=== PATIENT | male | born 1955 | race Caucasian/White ===

== ENCOUNTER 2016-03-14 12:23 | Day surgery (SDC) | payer BC ==
[2016-03-14] MEDS ORDERED: LIDOCAINE 2% MDV (20MG/ML) 20ML VIAL IV ONE (14:00)
[2016-03-14] MEDS ORDERED: PROPOFOL 10 MG/ML VIAL IV ONE (14:00)
--- NOTE | 2016-03-15 16:00 | Operative Note ---
DATE OF SURGERY: 03/14/2016. DICTATING MACHINE SHOP INSPECTOR: Yonatan Hart D.O. dictating for Mario Beckett D.O. PREOPERATIVE INDICATION: This is a 60-year-old male undergoing screening colonoscopy for colorectal neoplasia. POSTOPERATIVE DIAGNOSES: 1. Sigmoid colon diverticulosis. 2. Ascending colon polyp, 6.0 mm and sessile. Removed with cold-snare and retrieved for pathology. 3. Normal terminal ileum. 4. Small internal hemorrhoids. PROCEDURE: Colonoscopy with polypectomy. ENDOSCOPIST: Mario Beckett D.O. MACHINE SHOP INSPECTOR: Yonatan Hart D.O. ANESTHESIA: Anesthesia was provided by the Anesthesia Department. COMPLICATIONS: None. QUALITY OF PREPARATION: Excellent. PROCEDURE: The procedure was thoroughly explained to the patient including risks, benefits, and alternatives. The patient had an opportunity to have his questions answered and sign informed written consent. The patient was transported to the endoscopy suite and placed in the left lateral decubitus position. A digital rectal examination was performed with no abnormalities felt. Good anal sphincter tone. A well-lubricated PCF-180 colonoscope was inserted into the rectum and advanced to the cecum under direct visualization. The appendiceal orifice and ileocecal valve were identified. The terminal ileum was intubated and appeared normal. The colon was again evaluated in detail as the colonoscope was withdrawn. There was evidence of diverticulosis in the sigmoid colon with some tortuosity and redundancy. There was a 6.0 mm sessile polyp in the ascending colon which was removed with cold- snare and retrieved for pathology. Retroflexion was performed in the rectum with small internal hemorrhoids seen. The colonoscope was straightened and the rectum was decompressed and the colonoscope was withdrawn. The patient tolerated the procedure well and will be transported to Recovery in stable condition. Findings of the examination will be discussed with the patient in Recovery. RECOMMENDATIONS: 1. Await colon polyp pathology. 2. Repeat colonoscopy in five years pending pathology. MARIO BECKETT D.O. Date Time cc: Aung Allen M.D. Job Number: [id number] MTDD
== END 2016-03-14 15:15 | disposition home or self-care (01) ==
LOC: HOP 12:23
PROVIDERS: ATTEND Internal Medicine Gastroenterology
DX: Z12.11 Encounter for screening for malignant neoplasm of colon (principal); D12.2 Benign neoplasm of ascending colon; K57.30 Diverticulosis of large intestine without perforation or abscess without bleeding; K64.8 Other hemorrhoids; E78.00 Pure hypercholesterolemia, unspecified; I10 Essential (primary) hypertension

== ENCOUNTER 2017-07-02 19:13 | Observation (INO) | payer BC ==
--- NOTE | 2017-07-02 19:35 | Emergency Department Record ---
History of Present Illness - General Chief Complaint: Shortness of breath Stated Complaint: LORI,GUGGLING WHEN TAKING A BREATH,COUGH Time Seen by Provider: 07/02/17 19:34 Source: Patient Mode of Arrival: Ambulatory Limitations: No limitations - History of Present Illness Initial Comments: The patient is here due to a 2 day hx of cough and congestion. He has had some colored sputum and intermittent LORI with the coughing. There has been no CP, fever, chills, NOLEN, or leg swelling. MD Complaint: Cough, Shortness of breath Onset/Timin -: Days(s) Improves With: Rest, Upright position Worsens With: Lying flat, Movement Treatments Prior to Arrival: None - Related Data Home Oxygen Therapy: No Home Medications Medication Instructions Recorded Confirmed Last Taken Aspirin Chewable 81 mg PO DAILY 07/02/17 07/02/17 07/02/17 Gemfibrozil [Lopid] 600 mg PO BID 07/02/17 07/02/17 07/02/17 Lisinopril 20 mg PO DAILY 07/02/17 07/02/17 07/02/17 Allergies Allergy/AdvReac Type Severity Reaction Status Date / Time No Known Drug Allergies Allergy Verified 07/02/17 19:17 Travel Screening - Travel/Exposure Within Last 30 Days Have you traveled within the last 30 days?: No - Travel/Exposure Within Last Year Have you traveled outside the [place] in the last year?: No - Additonal Travel Details Have you been exposed to anyone with a communicable illness?: No - Travel Symptoms Symptom Screening: None Review of Systems Constitutional: Reports: Malaise. Denies: Chills, Fever Eyes: Denies: Eye discharge ENT: Reports: Congestion. Denies: Dental pain Respiratory: Reports: Cough, Dyspnea. Denies: Hemoptysis, Stridor, Wheezes Cardiovascular: Denies: Chest pain Endocrine: Denies: Fatigue Gastrointestinal: Denies: Abdominal pain Genitourinary: Denies: Dysuria Musculoskeletal: Denies: Arthralgia Past Medical History - SOCIAL HISTORY Smoking Status: Never smoker Alcohol Use: Rare Drug Use: None - RESPIRATORY Hx Respiratory Disorders: No - CARDIOVASCULAR Hx Cardio Disorders: Yes Hx Hypertension: Yes - NEURO Hx Neuro Disorders: No - GI Hx GI Disorders: No - Hx Genitourinary Disorders: No - ENDOCRINE Hx Endocrine Disorders: No Hx Diabetes: No Hx Thyroid Disease: No - MUSCULOSKELETAL Hx Musculoskeletal Disorders: Yes Hx Arthritis: Yes - PSYCH Hx Psych Problems: No - HEMATOLOGY/ONCOLOGY Hx Hematology/Oncology Disorders: No Family Medical History Any Significant Family History?: No Physical Exam - General General Appearance: Alert, Oriented x3, Cooperative, No acute distress - Head Head exam: Atraumatic, Normocephalic, Normal inspection - Eye Eye exam: Normal appearance, PERRL - ENT Throat exam: Normal inspection. negative: Tonsillar erythema, Tonsillar exudate - Neck Neck exam: Normal inspection, Full ROM. negative: Tenderness - Respiratory Respiratory exam: Normal lung sounds bilaterally. negative: Rales, Respiratory distress, Rhonchi, Stridor, Wheezes - Cardiovascular Cardiovascular Exam: Regular rate, Normal rhythm, Normal heart sounds - GI/Abdominal GI/Abdominal exam: Soft, Normal bowel sounds. negative: Tenderness - Extremities Extremities exam: Normal inspection, Full ROM, Normal capillary refill. negative: Pedal edema, Tenderness - Neurological Neurological exam: Alert. negative: Motor sensory deficit Course Vital Signs 07/02/17 19:16 Temperature 98.4 F Pulse Rate 78 Respiratory 26 H Rate Blood Pressure 158/84 Pulse Ox 95 - Reevaluation(s) Reevaluation #1: The patient is doing OK at this time. I did discuss the xray results with him and the need for admission and he did agree. I also did discuss the case with Nimo (SAURAV) and she does accept the admission for Dr. Thomas. 07/02/17 20:54 Medical Decision Making - Data Complexity MDM Data: Labs Ordered and/or Reviewed, X-Ray Ordered and/or Reviewed, EKG Ordered and/or Reviewed - Lab Data Result diagrams: 07/02/17 19:40 07/02/17 19:40 - EKG Data -: EKG Interpreted by Ms EKG: No Acute Changes - Radiology Data Radiology results: Report reviewed (CXR: large L sided pneumonia) Disposition Disposition: Admit Clinical Impression: Pneumonia Qualifiers: Pneumonia type: due to unspecified organism Laterality: left Lung location: unspecified part of lung Qualified Code(s): J18.9 - Pneumonia, unspecified organism Disposition: Still a Patient at [facility] Decision to Admit: Admit from ER Decision to Admit Date: 07/02/17 Decision to Admit Time: 20:55 Accepting Physician: Fernander Time Discussed w/Accepting Physician: 20:55 Condition: (2) Stable Time of Disposition: 20:55 Quality - Quality Measures Quality Measures: N/A - Blood Pressure Screening View Details: Yes Does Patient Have Any of the Following: Active Dx of HTN Blood Pressure Classification: Pre-Hypertensive BP Reading Systolic Measurement: 158 Diastolic Measurement: 84 Screening for High Blood Pressure: Patient Exclusion, Hx of HTN [G9744]
[2017-07-02] MEDS ORDERED: IPRATROPIUM/ALBUTEROL (0.5MG/3MG) NEB INH ONE (19:40)
[2017-07-02 19:53] LABS: BASO % 0.1 % (0-6); EOS % 3.6 % (0-6); GRAN % 71.3 % (47-80); HEMATOCRIT 32.4 % (42.0-52.0); HEMOGLOBIN 10.7 gm/dl (14.0-18.0); LYMPH % 15.7 % (16-45); MEAN CELL VOLUME 88.5 fl (81-97); MEAN CORPUSCULAR HEMOGLOBIN 29.2 pg (27-33); MEAN PLATELET VOLUME 10.4 fl (7.4-10.4); MONO % 9.3 % (0-9); PLATELET COUNT 181 K/uL (130-400); RED BLOOD COUNT 3.66 M/uL (4.40-5.70); RED CELL DISTRIBUTION WIDTH 13.4 % (11.5-14.5); WHITE BLOOD COUNT W/O DIFF 6.9 K/uL (4.2-12.2)
[2017-07-02 20:01] LABS: BLOOD UREA NITROGEN 13 mg/dL (8-23); CREATININE 0.8 mg/dL (0.7-1.2); EST GLOMERULAR FILTRATION RATE > 60 mL/min
[2017-07-02 20:04] LABS: GLUCOSE,RANDOM 114 mg/dL (74-109)
[2017-07-02 20:07] LABS: CREATINE PHOSPHOKINASE 341 U/L (39-308)
[2017-07-02] MEDS ORDERED: AZITHROMYCIN 500 MG in 0.9 % SODIUM CHLORIDE 250ML 250 ML IVPB ONE (20:32)
[2017-07-02] MEDS ORDERED: CEFTRIAXONE SODIUM 1 GM in 0.9 % SODIUM CHLORIDE 100ML 100 ML IVPB ONE (20:32)
[2017-07-02] MEDS ORDERED: CEFTRIAXONE SODIUM 1 GM in 0.9 % SODIUM CHLORIDE 100ML 100 ML IVPB SCH (21:35)
[2017-07-02] MEDS ORDERED: ACETAMINOPHEN 500 MG TABLET PO PRN (21:35)
[2017-07-02] MEDS ORDERED: LISINOPRIL 20 MG TABLET PO SCH (22:50)
[2017-07-02] MEDS ORDERED: ASPIRIN 81 MG CHEWABLE TABLET PO SCH (22:50)
[2017-07-02] MEDS: IPRATROPIUM/ALBUTEROL (0.5MG/3MG) NEB INH SCH (22:53)
[2017-07-02] MEDS: GEMFIBROZIL 600 MG TABLET PO SCH (22:55)
[2017-07-03] MEDS: IPRATROPIUM/ALBUTEROL (0.5MG/3MG) NEB INH SCH ×5 (05:52→18:23)
[2017-07-03 06:32] LABS: BASO % 0.2 % (0-6); GRAN % 61.7 % (47-80); HEMOGLOBIN 10.5 gm/dl (14.0-18.0); LYMPH % 22.9 % (16-45); MEAN CELL VOLUME 89.1 fl (81-97); MEAN CORPUSCULAR HEMOGLOBIN 29.2 pg (27-33); MEAN CORPUSCULAR HGB CONC 32.8 g/dl (32-36); MEAN PLATELET VOLUME 10.8 fl (7.4-10.4); MONO % 9.2 % (0-9); PLATELET COUNT 178 K/uL (130-400); RED BLOOD COUNT 3.59 M/uL (4.40-5.70); RED CELL DISTRIBUTION WIDTH 13.6 % (11.5-14.5)
[2017-07-03 07:00] LABS: ALB/GLOB RATIO 1.2 (1.1-1.8); ALBUMIN 3.8 g/dL (4.0-5.0); ALKALINE PHOSPHATASE 45 U/L (40-129); ALT/SGPT 21 U/L (<41); AST/SGOT 26 U/L (10.0-50.0); BLOOD UREA NITROGEN 14 mg/dL (8-23); CREATININE 0.9 mg/dL (0.7-1.2); EST GLOMERULAR FILTRATION RATE > 60 mL/min; GLUCOSE,RANDOM 105 mg/dL (74-109)
--- NOTE | 2017-07-03 07:16 | RADIOLOGY REPORT ---
EXAM: CHEST, TWO VIEWS HISTORY: COUGH, CONGESTION AND DYSPNEA FOR TWO DAYS. TECHNIQUE: Two views of the chest were obtained. Comparison: None. FINDINGS: The cardiomediastinal silhouette is borderline enlarged. There is moderate air space disease involving the left mid and lower lung. The right lung appears clear. No conclusive pleural effusion. Mild degenerative changes of the thoracic spine. IMPRESSION: 1. MODERATE AIR SPACE DISEASE INVOLVING THE LEFT MID AND LOWER LUNG. 2. BORDERLINE CARDIOMEGALY. JOB NUMBER: [id number] [facility]
--- NOTE | 2017-07-03 07:45 | History & Physical ---
History of Present Illness - Date of Service Date of Service for History & Physical: 07/03/17 - History of Present Illness Admitting Diagnosis: 1. Acute L sided Pneumonia History of Present Illness: 61yo male with CC of cough/sob. He has history of htn, osteoarthritis of the knees, and high cholesterol. Patient presented to the ED with a 2 day hx of cough and congestion. He has had some colored sputum and intermittent LORI with the coughing. There has been no CP , fever, chills, NOLEN, or leg swelling. While in the ED, room air sats in the low 90's. EKG showing NSR without ST changes. CXR showed moderate airspace disease of the left mid and lower lungs. CBC and CMP unremarkable. Received breathing treatments with some improvement in SOB. Started on azithro and rocephin for empiric therapy of CAP and admitted for further IV administration. 07/03/17- Patient states he is feeling better today. He says he had been feeling short of breath but today he has not been having that feeling. He is coughing and is starting to bring up some thick yellow sputum. He denies wheezing, difficulty breathing, chest pain, fever, chills. feeling a little more tired than usual. Denies any sick contacts, or travel. Had been camping in [place] a week ago and took his cpap and says it was very cold when he was camping so he had a lot of cold air used in the cpap. he started feeling poorly after that trip. pcp: Tiffany Travel Screening - Travel/Exposure Within Last 30 Days Have you traveled within the last 30 days?: No - Travel/Exposure Within Last Year Have you traveled outside the [place] in the last year?: No - Additonal Travel Details Have you been exposed to anyone with a communicable illness?: No - Travel Symptoms Symptom Screening: None Review of Systems Constitutional: Reports: Malaise. Denies: Chills, Fever Eyes: Denies: Eye discharge ENT: Reports: Congestion. Denies: Dental pain Respiratory: Reports: Cough, Dyspnea. Denies: Hemoptysis, Stridor, Wheezes Cardiovascular: Denies: Chest pain Endocrine: Denies: Fatigue Gastrointestinal: Denies: Abdominal pain Genitourinary: Denies: Dysuria Musculoskeletal: Denies: Arthralgia Past Medical History - SOCIAL HISTORY Smoking Status: Never smoker Alcohol Use: None Drug Use: None - RESPIRATORY Hx Respiratory Disorders: No Hx Pneumonia: Yes (x2 in his 20'S) - CARDIOVASCULAR Hx Cardio Disorders: Yes Hx Hypertension: Yes - NEURO Hx Neuro Disorders: No - GI Hx GI Disorders: No - Hx Genitourinary Disorders: No - ENDOCRINE Hx Endocrine Disorders: No Hx Diabetes: No Hx Thyroid Disease: No - MUSCULOSKELETAL Hx Musculoskeletal Disorders: Yes Hx Arthritis: Yes (bilateral knees bone on bone; has had injections) - PSYCH Hx Psych Problems: No - HEMATOLOGY/ONCOLOGY Hx Hematology/Oncology Disorders: No Family Medical History Any Significant Family History?: No H&P Meds/Allergies - Allergies Allergies: Allergies Allergy/AdvReac Type Severity Reaction Status Date / Time No Known Drug Allergies Allergy Verified 07/02/17 19:17 - Home Medications Home Medications Medication Instructions Recorded Confirmed Last Taken Aspirin Chewable 81 mg PO DAILY 07/02/17 07/02/17 07/02/17 Gemfibrozil [Lopid] 600 mg PO BID 07/02/17 07/02/17 07/02/17 Lisinopril 20 mg PO DAILY 07/02/17 07/02/17 07/02/17 - Active Medications Active Medications: Current Medications Acetaminophen (Tylenol 500mg Tab) 500 mg PO Q6H PRN PRN Reason: PAIN/TEMP Albuterol/Ipratropium (Duoneb) 3 ml INH RESP.Q4H.[facility] Last Admin: 07/03/17 05:52 Dose: 3 ml Aspirin (Aspirin Chewable) 81 mg PO 2200 [facility] Last Admin: 07/02/17 22:56 Dose: 81 mg Gemfibrozil (Lopid) 600 mg PO BID [facility] Last Admin: 07/02/17 22:55 Dose: 600 mg Guaifenesin (Mucinex) 1,200 mg PO BID [facility] Azithromycin 500 mg/ Sodium (Chloride) 250 mls @ 250 mls/hr IVPB Q24H [facility] Stop: 07/08/17 21:01 Last Infusion: 07/03/17 00:00 Dose: Infused Ceftriaxone Sodium 1 gm/ (Sodium Chloride) 100 mls @ 100 mls/hr IVPB Q12H [facility] Stop: 07/08/17 23:01 Lisinopril (Zestril) 20 mg PO 2200 [facility] Last Admin: 07/02/17 22:55 Dose: 20 mg Physical Exam - Vital Signs Vital Signs: Vital Signs - Last 24 Hrs Temp Pulse Pulse Resp BP BP BP 07/03/17 06:00 97.7 F 70 20 149/86 07/03/17 05:52 70 18 07/03/17 02:00 97.5 F L 70 16 127/70 07/02/17 22:53 78 16 07/02/17 21:30 99.0 F 70 19 139/65 07/02/17 21:20 73 24 138/71 07/02/17 20:45 73 32 H 142/71 07/02/17 20:20 77 28 H 169/90 07/02/17 19:50 78 18 07/02/17 19:16 98.4 F 78 26 H 158/84 Pulse Ox 07/03/17 06:00 98 07/03/17 05:52 96 07/03/17 02:00 98 07/02/17 22:53 96 07/02/17 21:30 96 07/02/17 21:20 98 07/02/17 20:45 98 07/02/17 20:20 96 07/02/17 19:50 95 07/02/17 19:16 95 - General General Appearance: Alert, Oriented x3, Cooperative, No acute distress Limitations: No limitations - Head Head exam: Atraumatic, Normocephalic, Normal inspection - Eye Eye exam: Normal appearance, PERRL - ENT ENT exam: Normal exam, Mucous membranes moist, Normal external ear exam, Normal orophraynx, TM's normal bilaterally Throat exam: Normal inspection. negative: Tonsillar erythema, Tonsillar exudate - Neck Neck exam: Normal inspection, Full ROM. negative: Tenderness - Respiratory Respiratory exam: Rhonchi (left mid/lower lung ). negative: Accessory muscle use, Rales, Respiratory distress, Stridor, Wheezes - Cardiovascular Cardiovascular Exam: Regular rate, Normal rhythm, Normal heart sounds - GI/Abdominal GI/Abdominal exam: Soft, Normal bowel sounds. negative: Tenderness - Extremities Extremities exam: Normal inspection, Full ROM, Normal capillary refill. negative: Pedal edema, Tenderness - Neurological Neurological exam: Alert. negative: Motor sensory deficit Results - Labs Result Diagrams: 07/03/17 06:07 07/03/17 06:07 Labs Last 24 Hours: Laboratory Results - last 24 hr 07/02/17 07/02/17 07/03/17 19:40 19:40 06:07 WBC 6.9 6.0 RBC 3.66 L 3.59 L Hgb 10.7 L 10.5 L Hct 32.4 L 32.0 L MCV 88.5 89.1 MCH 29.2 29.2 MCHC 33.0 32.8 RDW 13.4 13.6 Plt Count 181 178 MPV 10.4 10.8 H Gran % 71.3 61.7 Lymphocytes % 15.7 L 22.9 Monocytes % 9.3 H 9.2 H Eosinophils % 3.6 6.0 Basophils % 0.1 0.2 Sodium 141 Potassium 3.9 Chloride 99 Carbon Dioxide 26.0 Anion Gap 16.0 BUN 13 Creatinine 0.8 Estimated GFR > 60 Random Glucose 114 H Calcium 8.9 Total Bilirubin AST ALT Alkaline Phosphatase Creatine Kinase 341 H CK-MB (CK-2) 4.0 Troponin T < 0.010 NT-Pro-B Natriuret Pep 147.50 H Total Protein Albumin Globulin Albumin/Globulin Ratio 07/03/17 06:07 WBC RBC Hgb Hct MCV MCH MCHC RDW Plt Count MPV Gran % Lymphocytes % Monocytes % Eosinophils % Basophils % Sodium 143 Potassium 4.0 Chloride 101 Carbon Dioxide 25.0 Anion Gap 17.0 H BUN 14 Creatinine 0.9 Estimated GFR > 60 Random Glucose 105 Calcium 8.8 Total Bilirubin 0.40 AST 26 ALT 21 Alkaline Phosphatase 45 Creatine Kinase CK-MB (CK-2) Troponin T NT-Pro-B Natriuret Pep Total Protein 7.0 Albumin 3.8 L Globulin 3.2 Albumin/Globulin Ratio 1.2 - Imaging and Cardiology Chest x-ray Status: Report reviewed (moderate airspace disease in mid/lower left lung) VTE H&P Assessment - Risk for VTE Risk for VTE: Yes Risk Level: Moderate Risk Assessment Date: 07/03/17 Risk Assessment Time: 13:48 VTE Orders Placed or Will Be Placed: Yes Plan - Inpatient Certification Inpatient Certification: Admit to inpatient care: Based on my medical assessment, after consideration of patient's risk factors (age, co-morbidities and patient presenting symptoms and acuity), I expect that this patient will remain in the hospital greater than or equal to two midnights and that the services needed warrant inpatient care because: Patient Risk Factors: [] Estimated length of stay: [] The patient may reasonably be expected to be discharged or transferred to a hospital within 96 hours after admission to [facility]. Services needed: [] Post hospital care (if known): [] I certify that my determination is in accordance with my understanding of Medicare requirements for reasonable and necessary inpatient services. - Detailed Diagnosis and Plan (1) Pneumonia Current Visit: Yes Status: Acute Qualifiers: Pneumonia type: due to unspecified organism Laterality: left Lung location: unspecified part of lung Qualified Code(s): J18.9 - Pneumonia, unspecified organism Base Code: J18.9 - PNEUMONIA, UNSPECIFIED ORGANISM Comment: 07/03/17- improving. CXR showing mod airspace dz in the left mid and lower lungs. No MRSA or nosocomial RF. Not requiring supplemental oxygen. afebrile and WBC count remains wnl. -plan to discharge home today -continue empiric CAP therapy. will give one more dose of rocephin and azithromycin IV prior to discharge then transition to oral cefdinir 300mg po bid for 10 days and azithromycin 250mg po daily for 3 more days -mucinex 1200mg po bid -tessalon perles 200mg po q8H prn cough -follow up with Dr. Allen in 7-10 days. spent 10 minutes discusssing reasons to return to ED including new or worsening symptoms. (2) Full code status Current Visit: Yes Status: Acute Base Code: Z78.9 - OTHER SPECIFIED HEALTH STATUS Comment: 07/03/17- patient is full code (3) DVT prophylaxis Current Visit: Yes Status: Acute Base Code: [id number] - Comment: 07/03/17- patient moderate risk with age and restricted mobility -lovenox 40mg sq daily for prophylaxis was ordered but patient discharged prior to 24H stay
[2017-07-03] MEDS ORDERED: GUAIFENESIN 1,200 MG TABLET PO SCH (10:00)
[2017-07-03] MEDS: GEMFIBROZIL 600 MG TABLET PO SCH (11:26)
--- NOTE | 2017-07-03 13:58 | Discharge Summary ---
Providers Discharge Summary Date: 07/03/17 Date of admission: 07/02/17 21:26 Expected Date of Discharge: 07/03/17 Attending physician: KAYLEE SORENSEN Primary care physician: Aung Allen Physical Exam - Vital Signs Vital Signs: Vital Signs - Last 24 Hrs Temp Pulse Pulse Resp BP BP BP 07/03/17 11:30 70 18 07/03/17 10:00 97.7 F 76 16 123/66 07/03/17 09:00 76 18 07/03/17 06:00 97.7 F 70 20 149/86 07/03/17 05:52 70 18 07/03/17 02:00 97.5 F L 70 16 127/70 07/02/17 22:53 78 16 07/02/17 21:30 99.0 F 70 19 139/65 07/02/17 21:20 73 24 138/71 07/02/17 20:45 73 32 H 142/71 07/02/17 20:20 77 28 H 169/90 07/02/17 19:50 78 18 07/02/17 19:16 98.4 F 78 26 H 158/84 Pulse Ox 07/03/17 11:30 97 07/03/17 10:00 97 07/03/17 09:00 07/03/17 06:00 98 07/03/17 05:52 96 07/03/17 02:00 98 07/02/17 22:53 96 07/02/17 21:30 96 07/02/17 21:20 98 07/02/17 20:45 98 07/02/17 20:20 96 07/02/17 19:50 95 07/02/17 19:16 95 - General General Appearance: Alert, Oriented x3, Cooperative, No acute distress Limitations: No limitations - Head Head exam: Atraumatic, Normocephalic, Normal inspection - Eye Eye exam: Normal appearance, PERRL - ENT ENT exam: Normal exam, Mucous membranes moist, Normal external ear exam, Normal orophraynx, TM's normal bilaterally Throat exam: Normal inspection. negative: Tonsillar erythema, Tonsillar exudate - Neck Neck exam: Normal inspection, Full ROM. negative: Tenderness - Respiratory Respiratory exam: Rhonchi (left mid/lower lung ). negative: Accessory muscle use, Rales, Respiratory distress, Stridor, Wheezes - Cardiovascular Cardiovascular Exam: Regular rate, Normal rhythm, Normal heart sounds - GI/Abdominal GI/Abdominal exam: Soft, Normal bowel sounds. negative: Tenderness - Extremities Extremities exam: Normal inspection, Full ROM, Normal capillary refill. negative: Pedal edema, Tenderness - Neurological Neurological exam: Alert. negative: Motor sensory deficit Hospitalization - Hospitalization Admission Diagnosis: 1. Acute L sided Pneumonia - Problem List/Discharge Diagnosis (1) Pneumonia Current Visit: Yes Status: Acute Discharge Diagnosis: Pneumonia type: due to unspecified organism Laterality: left Lung location: unspecified part of lung Qualified Code(s): J18.9 - Pneumonia, unspecified organism Base Code: J18.9 - PNEUMONIA, UNSPECIFIED ORGANISM Comment: 07/03/17- improving. CXR showing mod airspace dz in the left mid and lower lungs. No MRSA or nosocomial RF. Not requiring supplemental oxygen. afebrile and WBC count remains wnl. -plan to discharge home today -continue empiric CAP therapy. will give one more dose of rocephin and azithromycin IV prior to discharge then transition to oral cefdinir 300mg po bid for 10 days and azithromycin 250mg po daily for 3 more days -mucinex 1200mg po bid -tessalon perles 200mg po q8H prn cough -follow up with Dr. Allen in 7-10 days. spent 10 minutes discusssing reasons to return to ED including new or worsening symptoms. (2) Full code status Current Visit: Yes Status: Acute Base Code: Z78.9 - OTHER SPECIFIED HEALTH STATUS Comment: 07/03/17- patient is full code (3) DVT prophylaxis Current Visit: Yes Status: Acute Base Code: [id number] - Comment: 07/03/17- patient moderate risk with age and restricted mobility -lovenox 40mg sq daily for prophylaxis was ordered but patient discharged prior to 24H stay - Hospitalization Course Disposition: Home, Self-Care Hospital Course: 61yo male with CC of cough/sob. He has history of htn, osteoarthritis of the knees, and high cholesterol. Patient presented to the ED with a 2 day hx of cough and congestion. He has had some colored sputum and intermittent LORI with the coughing. There has been no CP , fever, chills, NOLEN, or leg swelling. While in the ED, room air sats in the low 90's. EKG showing NSR without ST changes. CXR showed moderate airspace disease of the left mid and lower lungs. CBC and CMP unremarkable. Received breathing treatments with some improvement in SOB. Started on azithro and rocephin for empiric therapy of CAP and admitted for further IV administration. 07/03/17- Patient states he is feeling better today. He says he had been feeling short of breath but today he has not been having that feeling. He is coughing and is starting to bring up some thick yellow sputum. He denies wheezing, difficulty breathing, chest pain, fever, chills. feeling a little more tired than usual. Denies any sick contacts, or travel. Had been camping in [place] a week ago and took his cpap and says it was very cold when he was camping so he had a lot of cold air used in the cpap. he started feeling poorly after that trip. pcp: Tiffany Procedures: Imaging and X-Rays 07/02/17 19:39 CHEST 2 VIEWS [RAD] Stat Cardiology Procedures 07/02/17 19:39 EKG NOW 07/02/17 21:35 Insurance Producer .Continuous Abnormal Labs: Abnormal Lab Results 07/02/17 07/02/17 07/03/17 Range/Units 19:40 19:40 06:07 RBC 3.66 L 3.59 L (4.40-5.70) M/uL Hgb 10.7 L 10.5 L (14.0-18.0) gm/dl Hct 32.4 L 32.0 L (42.0-52.0) % MPV 10.8 H (7.4-10.4) fl Lymphocytes % 15.7 L (16-45) % Monocytes % 9.3 H 9.2 H (0-9) % Anion Gap (7-16) Random Glucose 114 H (74-109) mg/dL Creatine Kinase 341 H (39-308) U/L NT-Pro-B Natriuret Pep 147.50 H (<125) pg/mL Albumin (4.0-5.0) g/dL 07/03/17 Range/Units 06:07 RBC (4.40-5.70) M/uL Hgb (14.0-18.0) gm/dl Hct (42.0-52.0) % MPV (7.4-10.4) fl Lymphocytes % (16-45) % Monocytes % (0-9) % Anion Gap 17.0 H (7-16) Random Glucose (74-109) mg/dL Creatine Kinase (39-308) U/L NT-Pro-B Natriuret Pep (<125) pg/mL Albumin 3.8 L (4.0-5.0) g/dL Condition at Discharge: (2) Stable Discharge Medications - Discharge Medications Prescriptions: Guaifenesin [Guaifenesin ER] 1,200 mg PO Q12HR PRN #20 tab.er.12h PRN Reason: congestion Azithromycin 250 mg PO DAILY #3 tablet Benzonatate [Tessalon] 2 cap PO Q8H PRN #20 cap PRN Reason: Cough Cefdinir 300 mg PO Q12H #20 capsule Home Medications: Ambulatory Orders Aspirin Chewable 81 mg PO DAILY 07/02/17 [Last Taken 07/02/17] Gemfibrozil [Lopid] 600 mg PO BID 07/02/17 [Last Taken 07/02/17] Lisinopril 20 mg PO DAILY 07/02/17 [Last Taken 07/02/17] Azithromycin 250 mg PO DAILY #3 tablet 07/03/17 [Last Taken Unknown] Benzonatate [Tessalon] 2 cap PO Q8H PRN #20 cap 07/03/17 [Last Taken Unknown] Cefdinir 300 mg PO Q12H #20 capsule 07/03/17 [Last Taken Unknown] Guaifenesin [Guaifenesin ER] 1,200 mg PO Q12HR PRN #20 tab.er.12h 07/03/17 [ Last Taken Unknown] Discharge Plan - Discharge Instructions Activity at Discharge: Resume Usual Activities As Tolerated Diet at Discharge: Low Fat, Low Cholesterol Additional Instructions: Follow up with Dr. Allen in 7-10 days Resume your home medications Start Azithromycin 250mg by mouth once daily. Your next dose will be due tomorrow afternoon Start Cefdinir 300mg by mouth twice daily. Your next dose will be tonight May use tessalon perles 200mg by mouth every 8 hours as needed for cough suppression May use the mucinex 1200mg by mouth every 12 hours as needed for chest congestion. Please call with any questions or concerns Return to ED if any new or worsening symptoms Quality Measures - Quality Measures Quality Measures: Documentation of Current Medications in Medical Record, Screening for High Blood Pressure and F/U Documented - Current Medications Quality Measure: Measure #130: Documentation of Current Medications Documentation of Current Medications: <Current Medications Documented/Reviewed> [G8427] - Blood Pressure Screening Quality Measure: Screening for High Blood Pressure and Follow-Up Documented Does Patient Have Any of the Following: Active Dx of HTN Blood Pressure Classification: Pre-Hypertensive BP Reading Systolic Measurement: 158 Diastolic Measurement: 84 Screening for High Blood Pressure: Patient Exclusion, Hx of HTN [G9744] - Elder Abuse Suspicion Index EASI Reference Information: Sanjay STANFORD, Nina C, Oral D, Era Harvey.Development and validation of a tool to assist physicians identification of elder abuse: The Elder Abuse Suspicion Index (EASI ). Journal of Elder Abuse and Neglect, 2008; 20 (3): 276-300.
[2017-07-03] MEDS ORDERED: CEFTRIAXONE SODIUM 1 GM in 0.9 % SODIUM CHLORIDE 100ML 100 ML IVPB ONE (14:03)
[2017-07-03] MEDS ORDERED: AZITHROMYCIN 500 MG in 0.9 % SODIUM CHLORIDE 250ML 250 ML IVPB ONE (14:03)
[2017-07-03] MEDS ORDERED: AZITHROMYCIN 500 MG TABLET PO ONE (14:15)
[2017-07-03] MEDS ORDERED: CEFTRIAXONE 1GM/50ML BAG 1 GM/50 ML BAG IVPB SCH (15:30)
[2017-07-03] MEDS ORDERED: AZITHROMYCIN 500 MG in 0.9 % SODIUM CHLORIDE 250ML 250 ML IVPB SCH (21:00)
[2017-07-03] MEDS ORDERED: CEFTRIAXONE SODIUM 1 GM in 0.9 % SODIUM CHLORIDE 100ML 100 ML IVPB SCH (23:00)
== END 2017-07-03 18:51 | disposition home or self-care (01) ==
LOC: ER 19:13 → MEDSURG 21:26 → INTOOBSV 21:26
PROVIDERS: ADMIT Internal Medicine; ATTEND Internal Medicine
DX: J18.9 Pneumonia, unspecified organism (principal); R05 Cough; I10 Essential (primary) hypertension; E78.00 Pure hypercholesterolemia, unspecified; M17.0 Bilateral primary osteoarthritis of knee
CPT/HCPCS: 99285 ×2; 96365; 82550; 85025 ×2; 82553; 80048; 80053; 84484; 83880; 71046; 94640 ×3; 94761; 94760; 93005; 93010; G0378 ×2; 99220; J0456; J7050

== ENCOUNTER 2017-10-05 09:20 | Emergency (ER) | payer BC ==
[2017-10-05] MEDS ORDERED: KETOROLAC 30 MG/ML VIAL IVP ONE (09:39)
[2017-10-05] MEDS ORDERED: ONDANSETRON HCL IV 4 MG/2 ML VIAL IVP ONE (09:41)
--- NOTE | 2017-10-05 09:44 | Emergency Department Record ---
History of Present Illness - General Chief complaint: Flank Pain Stated complaint: FLANK PAIN Time Seen by Provider: 10/05/17 09:30 Source: Patient Mode of Arrival: Ambulatory Limitations: No limitations - History of Present Illness Initial comments: pt has r flank pain that radiates to his groin since in the night. he went to drs office and blood was found in his urine MD Complaint: Other Onset/Timin -: Hour(s) Location: Right flank Radiation: None Severity: Severe Severity scale (1-10): 10 Quality: Sharp Consistency: Constant Improves with: None Worsens with: None Reports: Blood in urine, Nausea/vomiting - Related Data Previous Rx's Medication Instructions Recorded Hydrocodone/Acetaminophen [Alger 0.5 tab PO Q6H PRN #12 tab 10/05/17 10mg/325mg] Allergies Allergy/AdvReac Type Severity Reaction Status Date / Time No Known Drug Allergies Allergy Verified 10/05/17 09:27 Travel Screening - Travel/Exposure Within Last 30 Days Have you traveled within the last 30 days?: No Review of Systems Reviewed: No additional complaints except as noted below Constitutional: Reports: As per HPI. Denies: Chills, Fever, Malaise, Night sweats, Weakness, Weight change Eyes: Reports: As per HPI. Denies: Eye discharge, Eye pain, Photophobia, Vision change ENT: Reports: As per HPI. Denies: Congestion, Dental pain, Ear pain, Epistaxis , Hearing loss, Throat pain Respiratory: Reports: As per HPI. Denies: Cough, Dyspnea, Hemoptysis, Stridor, Wheezes Cardiovascular: Reports: As per HPI. Denies: Arrhythmia, Chest pain, Dyspnea on exertion, Edema, Murmurs, Orthopnea, Palpitations, Paroxysmal nocturnal dyspnea, Rheumatic Fever, Syncope Endocrine: Reports: As per HPI. Denies: Fatigue, Heat or cold intolerance, Polydipsia, Polyuria Gastrointestinal: Reports: As per HPI, Nausea, Vomiting. Denies: Abdominal pain , Constipation, Diarrhea, Hematemesis, Hematochezia, Melena Genitourinary: Reports: As per HPI, Hematuria. Denies: Dysuria, Frequency, Incontinence, Retention, Testicular pain, Testicular mass, Urgency Musculoskeletal: Reports: As per HPI. Denies: Arthralgia, Back pain, Gout, Joint swelling, Myalgia, Neck pain Skin: Reports: As per HPI. Denies: Bruising, Change in color, Change in hair/ nails, Lesions, Pruritus, Rash Neurological: Reports: As per HPI. Denies: Abnormal gait, Confusion, Headache, Numbness, Paresthesias, Seizure, Tingling, Tremors, Vertigo, Weakness Psychiatric: Reports: As per HPI. Denies: Anxiety, Auditory hallucinations, Depression, Homicidal thoughts, Suicidal thoughts, Visual hallucinations Hematological/Lymphatic: Reports: As per HPI. Denies: Anemia, Blood Clots, Easy bleeding, Easy bruising, Swollen glands Past Medical History - SOCIAL HISTORY Smoking Status: Never smoker Alcohol Use: None Drug Use: None - RESPIRATORY Hx Respiratory Disorders: Yes Hx Pneumonia: Yes (x2 in his 20'S) - CARDIOVASCULAR Hx Cardio Disorders: Yes Hx Hypertension: Yes - NEURO Hx Neuro Disorders: No - GI Hx GI Disorders: No - Hx Genitourinary Disorders: No - ENDOCRINE Hx Endocrine Disorders: No Hx Diabetes: No Hx Thyroid Disease: No - MUSCULOSKELETAL Hx Musculoskeletal Disorders: Yes Hx Arthritis: Yes (bilateral knees bone on bone; has had injections) - PSYCH Hx Psych Problems: No - HEMATOLOGY/ONCOLOGY Hx Hematology/Oncology Disorders: No Family Medical History Any Significant Family History?: No Physical Exam - General General Appearance: Alert, Oriented x3, Cooperative, Mild distress - Head Head exam: Normal inspection - Eye Eye exam: Normal appearance, PERRL, EOMI Pupils: Normal accommodation - ENT ENT exam: Normal exam, Mucous membranes moist, Normal external ear exam, Normal orophraynx Ear exam: Normal external inspection. negative: External canal tenderness Nasal Exam: Normal inspection. negative: Discharge, Sinus tenderness Mouth exam: Normal external inspection, Tongue normal Teeth exam: Normal inspection. negative: Dental caries Throat exam: Normal inspection. negative: Tonsillar erythema, Tonsillar exudate - Neck Neck exam: Normal inspection, Full ROM. negative: Tenderness - Respiratory Respiratory exam: Normal lung sounds bilaterally. negative: Respiratory distress - Cardiovascular Cardiovascular Exam: Regular rate, Normal rhythm, Normal heart sounds - GI/Abdominal GI/Abdominal exam: Soft, Normal bowel sounds, Tenderness - Rectal Rectal exam: Deferred - exam: Deferred - Extremities Extremities exam: Normal inspection, Full ROM, Normal capillary refill. negative: Tenderness - Back Back exam: Reports: Normal inspection, CVA tenderness (R), Full ROM. Denies: Muscle spasm, Rash noted, Tenderness - Neurological Neurological exam: Alert, CN II-XII intact, Normal gait, Oriented X3 - Psychiatric Psychiatric exam: Normal affect, Normal mood - Skin Skin exam: Dry, Intact, Normal color, Warm Course Vital Signs 10/05/17 09:24 Temperature 98.3 F Pulse Rate 60 Respiratory 20 Rate Blood Pressure 170/88 Pulse Ox 98 Medical Decision Making - Lab Data Result diagrams: 10/05/17 09:46 10/05/17 09:46 Disposition Disposition: Discharge Clinical Impression: Renal lithiasis Hydronephrosis Qualifiers: Hydronephrosis type: with ureteral calculous obstruction Qualified Code(s): N13.2 - Hydronephrosis with renal and ureteral calculous obstruction Disposition: Home, Self-Care Condition: (1) Good Instructions: Kidney Stones (ED), Renal Colic (ED), How to Strain Your Urine ( ED) Additional Instructions: push fluids. follow up with urologist on esda. return sooner if worse. motrin with food for pain Prescriptions: Hydrocodone/Acetaminophen [Alger 10mg/325mg] 0.5 tab PO Q6H PRN #12 tab PRN Reason: Pain - General Forms: Patient Portal Access Quality - Quality Measures Quality Measures: N/A - Blood Pressure Screening Does Patient Have Any of the Following: No Blood Pressure Classification: Pre-Hypertensive BP Reading Systolic Measurement: 170 Diastolic Measurement: 88 Screening for High Blood Pressure: < Pre-Hypertensive BP, F/U Documented > [ G8950] Pre-Hypertensive Follow-up Interventions: Follow-up with rescreen every year.
[2017-10-05 09:49] LABS: BASO % 0.2 % (0-6); EOS % 4.5 % (0-6); GRAN % 72.1 % (47-80); HEMATOCRIT 37.1 % (42.0-52.0); HEMOGLOBIN 12.2 gm/dl (14.0-18.0); LYMPH % 14.6 % (16-45); MEAN CELL VOLUME 88.3 fl (81-97); MEAN CORPUSCULAR HGB CONC 32.9 g/dl (32-36); MEAN PLATELET VOLUME 11.1 fl (7.4-10.4); MONO % 8.6 % (0-9); PLATELET COUNT 212 K/uL (130-400); WHITE BLOOD COUNT W/O DIFF 8.5 K/uL (4.2-12.2)
[2017-10-05 09:59] LABS: BLOOD UREA NITROGEN 21 mg/dL (8-23); CREATININE 1.1 mg/dL (0.7-1.2); EST GLOMERULAR FILTRATION RATE > 60 mL/min
[2017-10-05 10:00] LABS: TOTAL PROTEIN 8.1 g/dL (6.6-8.7)
[2017-10-05 10:02] LABS: GLUCOSE,RANDOM 153 mg/dL (74-109)
[2017-10-05 10:05] LABS: ALB/GLOB RATIO 1.3 (1.1-1.8); ALBUMIN 4.6 g/dL (4.0-5.0); ALKALINE PHOSPHATASE 51 U/L (40-129); ALT/SGPT 29 U/L (<41); AST/SGOT 31 U/L (10.0-50.0)
[2017-10-05 10:55] LABS: URINE APPEARANCE CLEAR; URINE BILIRUBIN NEGATIVE (NEGATIVE); URINE BLOOD MODERATE (NEGATIVE); URINE COLOR YELLOW; URINE GLUCOSE (UA) NEGATIVE (NEGATIVE); URINE KETONE NEGATIVE (NEGATIVE); URINE LEUKOCYTE ESTERASE NEGATIVE (NEGATIVE); URINE NITRITE NEGATIVE (NEGATIVE); URINE PROTEIN NEGATIVE (NEGATIVE); URINE UROBILINOGEN 0.2 E.U./dL (0.20 - 1.00)
[2017-10-05 11:14] LABS: URINE EPITHELIAL CELLS 0 - 2 (FEW); URINE RBC 0 - 2 (NONE SEEN); URINE WBC 0 - 2 (0-2/hpf)
[2017-10-05] MEDS ORDERED: HYDROMORPHONE HCL 2 MG/ML VIAL IVP ONE (11:22)
--- NOTE | 2017-10-07 10:07 | CT SCAN REPORT ---
EXAM: CT SCAN ABDOMEN/PELVIS WO CONTRAST HISTORY: RIGHT FLANK PAIN, MICROHEMATURIA. TECHNIQUE: Noncontrast CT of the abdomen and pelvis. COMPARISON: CT abdomen and pelvis, 04/30/2009. FINDINGS: Lung bases appear unremarkable. Gallbladder appears surgically absent. Unremarkable noncontrast appearance of the liver, adrenal glands, and pancreas. The spleen appears mildly enlarged. Mild right hydroureteronephrosis and right perinephric fat stranding. There is a 4 mm calculus at the right ureterovesicular junction (series 3, image 147). No additional calculi detected. The right UVJ calculus is unchanged in position on prone images. The left kidney is unremarkable with the exception of a small cortical cyst. Stomach and small bowel appear nondilated. No focal colonic thickening or inflammatory changes. No free air in the abdomen or pelvis. No pathologic lymphadenopathy identified. Evidence of prior ventral abdominal hernia repair. The aorto-iliac arterial axis is tortuous with scattered calcifications. No evidence of aneurysmal dilation. Multilevel lumbar spine degenerative change with disc bulges and facet arthropathy. Evidence of transitional lumbosacral anatomy with likely partial sacralization of the lowest lumbar level and right-sided lumbosacral fusion. IMPRESSION: RIGHT URETEROVESICULAR JUNCTION CALCULUS RESULTING IN MILD HYDROURETERONEPHROSIS. JOB NUMBER: [id number] [facility]
== END 2017-10-05 12:29 | disposition home or self-care (01) ==
LOC: ER 09:20
DX: N13.2 Hydronephrosis with renal and ureteral calculous obstruction (principal); R31.29 Other microscopic hematuria; R11.2 Nausea with vomiting, unspecified; I10 Essential (primary) hypertension
CPT/HCPCS: 99284 ×2; 96374; 96375; 85025; 80053; 81001; 74176; J1885; J2405; J1170